=== PATIENT | male | born 1975 | race American Indian/Alaskan Native ===

== ENCOUNTER 2019-10-08 11:31 | Emergency (ER) | payer SELFPAY ==
[2019-10-08 11:40] VITALS: BP 133/83
--- NOTE | 2019-10-08 12:30 | Emergency Department Report ---
Blank Doc - Documentation Documentation: 43-year-old male that presents with groin pain and seen blood in underwear. This initial assessment/diagnostic orders/clinical plan/treatment(s) is/are subject to change based on patient's health status, clinical progression and re- assessment by fellow clinical providers in the ED. Further treatment and workup at subsequent clinical providers discretion. Patient/guardians urged not to elope from the ED as their condition may be serious if not clinically assessed and managed. Initial orders include: 1- Patient sent to [facility] for further evaluation and treatment 2- UA 3- US doppler
[2019-10-08 13:56] LABS: Bilirubin,Urine NEG (Negative); Blood,Urine NEG (Negative); Color,Urine Straw (Yellow); Protein,Urine <15 mg/dL mg/dL (Negative); Urobilinogen,Urine < 2.0 mg/dL (<2.0)
[2019-10-08 14:14] LABS: RBC,Urine < 1.0 /HPF (0.0-6.0); WBC,Urine < 1.0 /HPF (0.0-6.0)
--- NOTE | 2019-10-08 14:22 | Ultrasound Report ---
SCROTAL ULTRASOUND WITH DOPPLER HISTORY: testicular pain COMPARISON: None. TECHNIQUE: Grayscale, color and spectral Doppler images were obtained of the scrotum. FINDINGS: RIGHT: Right testicle: No significant abnormality. No mass. Right testicular size: 3.6 x 1.8 x 3.4 cm. Right epididymis: No significant abnormality. LEFT: Left testicle: No significant abnormality. No mass. Left testicular size: 4.5 x 1.6 x 2.4 cm. Left epididymis: No significant abnormality. Additional findings: Small bilateral hydroceles. IMPRESSION: 1. Normal testes. 2. No evidence of testicular torsion or epididymitis. 3. Small bilateral hydroceles. Signer Name: Seth Chi MD Signed: 10/08/2019 2:18 PM Workstation Name: [id number]
--- NOTE | 2019-10-08 14:52 | Emergency Department Report ---
ED Male HPI - General Chief complaint: Urogenital-Male Stated complaint: GROIN PAIN, BLOOD IN UNDERWEAR Time Seen by Provider: 10/08/19 12:29 Source: patient Mode of arrival: Ambulatory Limitations: No Limitations - History of Present Illness Initial comments: 43-year-old otherwise healthy male presenting with chief complaint of groin pain/discomfort over the past few days associated with a single episode where he noticed blood in the front of his underwear. Denies any dysuria but states that he has had persistent urgency over the past few days and feels like he is going more often. He denies abdominal pain, nausea, vomiting, testicular swelling, fevers, concern for STI. Denies any rectal bleeding. No alleviating or exacerbating factors elicited. No other associated symptoms. - Related Data Previous Rx's Medication Instructions Recorded Last Taken Type Sulfamethoxazole/Trimethoprim 1 each PO BID #56 tablet 10/08/19 Unknown Rx [Bactrim DS TAB] Tamsulosin [Flomax] 0.4 mg PO QDAY #30 cap 10/08/19 Unknown Rx Allergies Allergy/AdvReac Type Severity Reaction Status Date / Time No Known Allergies Allergy Unverified 10/08/19 11:38 ED Review of Systems ROS: Stated complaint: GROIN PAIN, BLOOD IN UNDERWEAR Other details as noted in HPI Comment: All other systems reviewed and negative Genitourinary: as per HPI ED Past Medical Hx - Past Medical History Previous Medical History?: No - Surgical History Past Surgical History?: Yes Additional Surgical History: Knee/leg surgery - Social History Smoking Status: Never Smoker Substance Use Type: Marijuana - Medications Home Medications: Home Medications Medication Instructions Recorded Confirmed Last Taken Type Sulfamethoxazole/Trimethoprim 1 each PO BID #56 tablet 10/08/19 Unknown Rx [Bactrim DS TAB] Tamsulosin [Flomax] 0.4 mg PO QDAY #30 cap 10/08/19 Unknown Rx ED Physical Exam - General Limitations: No Limitations General appearance: alert, in no apparent distress - Head Head exam: Present: atraumatic, normocephalic - Eye Eye exam: Present: normal appearance - ENT ENT exam: Present: mucous membranes moist - Neck Neck exam: Present: normal inspection - Respiratory Respiratory exam: Present: normal lung sounds bilaterally. Absent: respiratory distress - Cardiovascular Cardiovascular Exam: Present: regular rate, normal rhythm. Absent: systolic murmur, diastolic murmur, rubs, gallop - GI/Abdominal GI/Abdominal exam: Present: soft, normal bowel sounds. Absent: distended, tenderness, guarding - Rectal Rectal exam: Present: normal inspection, prostate tenderness (mild), prostate enlargement - exam: Present: normal inspection. Absent: testicular tenderness, urethral discharge, scrotal swelling External exam: Present: normal external exam - Extremities Exam Extremities exam: Present: normal inspection - Back Exam Back exam: Present: normal inspection - Neurological Exam Neurological exam: Present: alert, oriented X3 - Psychiatric Psychiatric exam: Present: normal affect, normal mood - Skin Skin exam: Present: warm, dry, intact, normal color. Absent: rash ED Course Vital Signs 10/08/19 11:39 Temperature 98.6 F Pulse Rate 60 Respiratory 16 Rate Blood Pressure 133/83 O2 Sat by Pulse 99 Oximetry ED Medical Decision Making - Radiology Data Radiology results: report reviewed Normal testicular ultrasound - Medical Decision Making Patient presenting with groin discomfort and points to the suprapubic area. Testicular exam normal. Prostate is mildly enlarged and mildly tender on exam. Suspect prostatitis as cause of symptoms. No abdominal tenderness noted. We will treat and refer to urology for outpatient follow-up. A testicular ultrasound was obtained from triage and is negative. Urinalysis is clear. - Differential Diagnosis Prostatitis, UTI, epididymitis Critical care attestation.: If time is entered above; I have spent that time in minutes in the direct care of this critically ill patient, excluding procedure time. ED Disposition Clinical Impression: Prostatitis Qualifiers: Prostatitis type: acute Qualified Code(s): N41.0 - Acute prostatitis Disposition: TO HOME OR SELFCARE Is pt being admited?: No Condition: Good Instructions: Prostatitis (ED) Prescriptions: Sulfamethoxazole/Trimethoprim [Bactrim DS TAB] 1 each PO BID #56 tablet Tamsulosin [Flomax] 0.4 mg PO QDAY #30 cap Referrals: ANGELA JANSEN MD [Primary Care Provider] - 3-5 Days CHUCK VAZQUEZ MD [Staff Physician] - 3-5 Days Time of Disposition: 14:51
== END 2019-10-08 15:03 | disposition home or self-care (01) ==
LOC: ED 11:31
DX: N41.0 Acute prostatitis (principal); F12.10 Cannabis abuse, uncomplicated
CPT/HCPCS: 81001; 87086; 93975; 99284